=== PATIENT | female | born 1980 | race Caucasian/White ===

== ENCOUNTER 2022-05-18 09:25 | Inpatient (IN) | payer MEDICAID ==
[~2022-05-18] VITALS: Ht 157.5 cm; Wt 67.6 kg
[2022-05-18] MEDS ORDERED: LACTATED RINGERS 1,000 ML IV SCH (09:55)
[2022-05-18] MEDS ORDERED: LABETALOL 20 MG/4 ML VIAL IVP ONE (09:57)
[2022-05-18] MEDS ORDERED: LABETALOL 20 MG/4 ML VIAL IVP SCH ×3 (10:02→13:30)
[2022-05-18] MEDS ORDERED: MAG SULF 20 GM/H2O PREMIX DRIP 500 ML IV PRN (10:15)
[2022-05-18] MEDS ORDERED: MAG SULF 2000 MG/WATER PREMIX 100 ML IV ONE ×2 (10:15→10:19)
[2022-05-18] MEDS ORDERED: BETAMETH ACET/BETAMETH NA PH 30 MG/5 ML VIAL IM SCH (10:30)
[2022-05-18] MEDS ORDERED: hydrALAZINE 20 MG/ML VIAL IVP SCH (10:55)
[2022-05-18 11:12] LABS: BASOPHILS % (AUTO) 0.3 % (0.0-2.0); EOSINOPHILS % (AUTO) 0.1 % (0.0-4.0); HEMATOCRIT 29.9 % (36-48); HEMOGLOBIN 10.3 g/dL (12.0-16.0); LYMPHOCYTES # (AUTO) 1.8 K/uL (2.5-16.5); LYMPHOCYTES % (AUTO) 18.8 % (20.5-51.1); MEAN CORPUSCULAR HEMOGLOBIN 32 pg (27-31); MEAN CORPUSCULAR HGB CONC 34 g/dL (33-37); MEAN CORPUSCULAR VOLUME 93.4 fL (80-94); MONOCYTES # (AUTO) 0.4 K/uL (0.8-1.0); MONOCYTES % (AUTO) 4.5 % (1.7-9.3); NEUTROPHILS # (AUTO) 7.3 K/uL (1.8-7.7); NEUTROPHILS % (AUTO) 76.3 % (42.2-75.2); PLATELET COUNT (AUTO) 143 K/uL (140-450); RED BLOOD CELL COUNT(AUTO) 3.21 MIL/uL (4.20-5.40); RED CELL DISTRIBUTION WIDTH 12.9 % (11.6-13.7); WHITE BLOOD COUNT (AUTO) 9.6 K/uL (4.8-10.8)
[2022-05-18 11:30] LABS: ANION GAP 10.4 (8-16); CARBON DIOXIDE 24.2 mmol/L (21-32); CREATININE 1.3 mg/dL (0.6-1.3); MAGNESIUM 3.6 mg/dL (1.8-2.4); POTASSIUM 3.6 mmol/L (3.5-5.1); TOTAL BILIRUBIN 0.5 mg/dL (0.0-1.0)
[2022-05-18 12:04] LABS: APPEARANCE,URINE HAZY (CLEAR); BILIRUBIN,URINE NEGATIVE (NEGATIVE); BLOOD, URINE 3+ (NEGATIVE); COLOR,URINE YELLOW (YELLOW); LEUKOCYTE ESTERASE ,URINE NEGATIVE (NEGATIVE); NITRITE, URINE NEGATIVE (NEGATIVE); UGLUCOSE NEGATIVE (NEGATIVE)
[2022-05-18 12:05] LABS: PROTHROMBIN TIME 8.4 secs (10.8-13.4)
[2022-05-18 12:25] VITALS: BP 170/93
[2022-05-18] MEDS ORDERED: ONDANSETRON 4 MG/2 ML VIAL ONE (12:52)
[2022-05-18] MEDS ORDERED: ONDANSETRON 4 MG/2 ML VIAL IVP PRN (12:55)
[2022-05-18 13:18] LABS: URINE TOTAL PROTEIN 645.5 mg/dL (0-12)
[2022-05-18] MEDS ORDERED: LABETALOL 100 MG/20 ML VIAL IVP SCH (13:42)
[2022-05-18 14:25] LABS: WBC,URINE 0-5 /HPF (0-5)
[2022-05-18] MEDS ORDERED: LEVO125C2 PO (14:46)
[2022-05-18] MEDS ORDERED: PNV91TAB8 PO (14:46)
--- NOTE | 2022-05-18 16:28 | NUR ---
PATIENT HAS BEEN SCREENED AND CATEGORIZED LOW NUTRITION RISK. PATIENT WILL BE SEEN WITHIN 7 DAYS OF ADMISSION. 05/25/22 REVIEWED BY LISA PURI RD
[2022-05-18] MEDS ORDERED: ACETAMINOPHEN 325 MG TAB PO PRN (20:05)
[2022-05-18] MEDS ORDERED: ACETAMINOPHEN 325 MG TAB ONE (20:11)
== END 2022-05-18 21:53 | disposition short-term general hospital (02) | DRG 566 ==
LOC: MLD 09:25
PROVIDERS: ADMIT Obstetrics & Gynecology; ATTEND Obstetrics & Gynecology
DX: O14.12 Severe pre-eclampsia, second trimester (principal); E03.9 Hypothyroidism, unspecified; O99.282 Endocrine, nutritional and metabolic diseases complicating pregnancy, second trimester; Z20.822 Contact with and (suspected) exposure to COVID-19; Z80.3 Family history of malignant neoplasm of breast; Z80.42 Family history of malignant neoplasm of prostate; Z82.49 Family history of ischemic heart disease and other diseases of the circulatory system; Z3A.24 24 weeks gestation of pregnancy
CPT/HCPCS: 36415; 80053; 81001; 82570; 83735; 84550; 85025; 85384; 85610; 85730; 86886; 86900; 86901; 87086; J0360; J0702; J2405; J3475; J3490